=== PATIENT | female | born 1990 | race Two or more races ===

== ENCOUNTER 2021-07-26 09:23 | Outpatient (CLI) | payer OTHER | END 2021-07-26 10:00 | disposition home or self-care (01) | LOC: PRENATAL 09:23 | PROVIDERS: ATTEND Obstetrics & Gynecology Maternal & Fetal Medicine | DX: O26.843 Uterine size-date discrepancy, third trimester (principal); O36.8131 Decreased fetal movements, third trimester, fetus 1; O28.1 Abnormal biochemical finding on antenatal screening of mother; Z36.89 Encounter for other specified antenatal screening; Z3A.32 32 weeks gestation of pregnancy ==

== ENCOUNTER 2021-08-30 13:26 | Inpatient (IN) | payer OTHER ==
[~2021-08-30] VITALS: Ht 162.6 cm; Wt 78.5 kg
[2021-09-04] MEDS ORDERED: PRENATAL CAPLE1 EAC1 PO (01:17)
== END 2021-09-06 15:21 | disposition home or self-care (01) | DRG 807 ==
LOC: OB/GYN 09-03 23:53 → LDR 09-03 23:53 → OB/GYN 09-04 02:46
PROVIDERS: ADMIT Obstetrics & Gynecology; ATTEND Obstetrics & Gynecology
PROC: 10E0XZZ Delivery of Products of Conception, External Approach (ICD-10-PCS; principal; 2021-09-03)
PROC: 4A1HXFZ Monitoring of Products of Conception, Cardiac Rhythm, External Approach (ICD-10-PCS; 2021-09-03)
DX: O42.02 Full-term premature rupture of membranes, onset of labor within 24 hours of rupture (principal); Z37.0 Single live birth; Z3A.37 37 weeks gestation of pregnancy

== ENCOUNTER 2024-07-27 02:08 | Inpatient (IN) | payer OTHER ==
[~2024-07-27] VITALS: Ht 167.6 cm; Wt 83.0 kg
[2024-07-27] VITALS (11 sets, daily range): BP systolic 103–133; BP diastolic 60–85
[~2024-07-27 02:08] MED LIST: PRENATAL CAPLE1 EAC1 PO
[2024-07-27] MEDS ORDERED: RINGERS SOLUTION,LACTATED 1,000 ML IV SCH (02:15)
[2024-07-27 02:56] LABS: PH,URINE 6.5 (5.0-8.0); URINE APPEARANCE Clear; URINE BILIRRUBIN Negative (NEGATIVE); URINE BLOOD Large; URINE COLOR Yellow; URINE GLUCOSE Negative (NEGATIVE); URINE KETONE Negative (NEGATIVE); URINE LEUKOCYTE Trace; URINE NITRATE Negative; URINE PROTEIN Negative (NEGATIVE)
[2024-07-27 02:59] LABS: URINE EPITHELIAL CELLS 13.1 uL (0.0-38.8); URINE RBC 22.5 uL (0.0-20.8); URINE WBC 18.8 uL (0.0-23.2)
[2024-07-27] MEDS ORDERED: CHLORHEXIDINE GLUCONATE 120 ML BOTTLE TOP SCH (03:00)
[2024-07-27] MEDS ORDERED: IBUprofen 400 MG TABLET PO PRN (03:00)
[2024-07-27] MEDS ORDERED: OXYTOCIN 1,000 ML IV SCH (03:00)
[2024-07-27 03:30] LABS: INR 0.94; PARTIAL THROMBOPLASTIN TIME 27.4 SECONDS (22.0-34.0); PROTHROMBIN TIME 10.3 SECONDS (9.0-11.5)
[2024-07-27 03:45] LABS: ALBUMIN 2.7 gm/dL (3.4-5.0); BILIRUBIN TOTAL 0.74 mg/dL (0.3-1.2); CALCIUM 8.8 mg/dL (8.5-10.1); CREATININE SERUM 0.57 mg/dL (0.55-1.02); GFR 122.92; GLOBULINA 3.9 G/DL (2.4-3.5); POTASSIUM 3.93 mEq/L (3.5-5.1); TOTAL PROTEIN 6.6 gm/dL (6.4-8.2)
[2024-07-27] MEDS ORDERED: LIDOCAINE HCL 1% 10ML VIAL IJ ONE (03:45)
[2024-07-27] MEDS ORDERED: OXYTOCIN 1,000 ML IV ONE (03:45)
[2024-07-27] MEDS ORDERED: ERYTHROMYCIN BASE OPHT 1GM EACH TUBE OP ONE (03:45)
[2024-07-27 03:46] LABS: URINE CAST 0.15 uL (0.0-1.40)
[2024-07-27 03:47] LABS: HEMOGLOBIN 13.3 g/dL (12.0-15.00); MEAN CELL VOLUME 89.1 fL (80.00-100.00); MEAN CORPUSCULAR HEMOGLOBIN 30.4 pg (27.00-32.0); MEAN CORPUSCULAR HGB CONC 34.1 g/dl (32.0-36.0); PLATELET COUNT 188 K/uL (150-450); RED BLOOD COUNT 4.38 M/uL (4.00-6.00)
[2024-07-27 15:31] LABS: HEMATOCRIT 36.7 % (36.0-45.00); HEMOGLOBIN 12.5 g/dL (12.0-15.00); MEAN CELL VOLUME 89.4 fL (80.00-100.00); MEAN CORPUSCULAR HEMOGLOBIN 30.6 pg (27.00-32.0); MEAN CORPUSCULAR HGB CONC 34.2 g/dl (32.0-36.0); PLATELET COUNT 184 K/uL (150-450); RED CELL DISTRIBUTION WIDTH 13.7 % (11.5-14.5)
[2024-07-27] MEDS ORDERED: CARBOPROST TROMETHAMINE 250 MCG/ML AMPUL IM ONE (23:15)
[2024-07-28 00:53] VITALS: BP 93/56
[2024-07-28 08:00] VITALS: BP 101/66
[2024-07-28 17:28] VITALS: BP 100/66
[2024-07-29 00:45] VITALS: BP 110/72
[2024-07-29 05:40] VITALS: BP 122/80
[2024-07-29 08:37] VITALS: BP 100/65
== END 2024-07-29 13:56 | disposition home or self-care (01) | DRG 807 ==
LOC: OB/GYN 02:08 → LDR 02:08 → OB/GYN 03:49
PROVIDERS: ADMIT Specialist; ATTEND Specialist
PROC: 10E0XZZ Delivery of Products of Conception, External Approach (ICD-10-PCS; principal; 2024-07-27)
PROC: 4A1HXCZ Monitoring of Products of Conception, Cardiac Rate, External Approach (ICD-10-PCS; 2024-07-27)
DX: O80 Encounter for full-term uncomplicated delivery (principal); Z37.0 Single live birth; Z3A.38 38 weeks gestation of pregnancy; Z20.822 Contact with and (suspected) exposure to COVID-19